=== PATIENT | male | born 1950 | race Caucasian/White ===

== ENCOUNTER 2023-08-09 01:57 | Emergency (ER) | payer MEDICARE ==
[~2023-08-09] VITALS: Ht 177 cm; Wt 97.5 kg
[2023-08-09] MEDS ORDERED: NITROGLYCERIN 0.4 MG SL TABLETS BTL 25'S SL PRN (02:15)
[2023-08-09] MEDS ORDERED: PROMETHAZINE INJ 25 MG/ML VIAL IVP STA (02:17)
--- NOTE | 2023-08-09 02:17 | ED General ---
General Source of Information: Patient, EMS, Spouse History of Present Illness Date Seen by Provider: Aug 09, 2023 Time Seen by Provider: 01:57 Initial Comments 72-year-old male presenting by EMS with complaints of waking up feeling nauseated and like his arms were heavy. He felt more short of breath than usual. He has a history of coronary artery disease and has had bypass in the past. He is visiting for a that is scheduled for Sunday. He felt like he had his defibrillator fire on him earlier today while he was traveling here. He woke up and felt like he had to go to the bathroom but ended up not going. He was feeling nauseated and felt like he was clammy and sweaty. He felt more short of breath and like his arms were heavy. He states that he has previously had a heart attack in his arms that felt heavy at that time as well. EMS gave him aspirin 324 mg and Zofran 4 mg IV. On arrival to the ED he states that his heaviness in his arms was feeling better but he feels like if he were to sit up or stand up that the heaviness will get a lot worse. Timing/Duration: 1 Hour Severity: Moderate Modifying Factors: worse with Movement Associated Systoms: No Cough; Diaphoresis; No Fever/Chills, No Headaches; Malaise, Nausea/Vomiting; No Rash, No Seizure; Shortness of Air; No Syncope; Weakness Allergies and Home Medications Allergies Coded Allergies: No Known Drug Allergies (Unverified , 08/09/23) Patient Home Medication List Home Medication List Reviewed: Yes Review of Systems Review of Systems Constitutional: No chills, No fever; malaise EENTM: no symptoms reported Respiratory: see HPI Cardiovascular: see HPI Gastrointestinal: see HPI Genitourinary: no symptoms reported Musculoskeletal: no symptoms reported Skin: see HPI Psychiatric/Neurological: Weakness Past Ibdrlfz-Mcerrd-Vuwwox Hx Past Medical History Surgery/Hospitalization HX: CAD, CABG, Hypertension, Pacemaker/Defibrillator Surgeries: Yes Cardiac, CABG Physical Exam Vital Signs Vital Signs - First Documented 08/09/23 08/09/23 02:04 02:26 Temp 37.0 Pulse 72 Resp 20 B/P (MAP) 152/72 (98) Pulse Ox 93 O2 Delivery Room Air O2 Flow Rate 2.00 Capillary Refill : Height, Weight, BMI Height: '" Weight: lbs. oz. kg; BMI Method: General Appearance: WD/WN, Chronically ill HEENT: PERRL/EOMI Neck: Full Range of Motion, Supple Respiratory: Chest Non Tender, Lungs Clear, Normal Breath Sounds, No Accessory Muscle Use, No Respiratory Distress Cardiovascular: Regular Rate, Rhythm, No Murmur, Normal Peripheral Pulses Gastrointestinal: Normal Bowel Sounds, No Pulsatile Mass, Non Tender, Soft Rectal: Deferred Extremity: Normal Capillary Refill, Normal Inspection, No Pedal Edema Neurologic/Psychiatric: Alert, Oriented x3, sheather II-XII Norm as Tested Skin: Normal Color, Warm/Dry Progress/Results/Core Measures Suspected Sepsis SIRS Temperature: Pulse: Respiratory Rate: Laboratory Tests 08/09/23 02:15: White Blood Count 13.2H Blood Pressure / Mean: Laboratory Tests 08/09/23 02:15: Creatinine 1.28, INR Comment 0.9, Platelet Count 246, Total Bilirubin 1.4H Results/Orders Lab Results Laboratory Tests Test 08/09/23 02:15 08/09/23 04:04 Range/Units White Blood Count 13.2 H 4.3-11.0 10^3/uL Red Blood Count 4.63 4.30-5.52 10^6/uL Hemoglobin 14.4 13.3-17.7 g/dL Hematocrit 44 40-54 % Mean Corpuscular Volume 94 80-99 fL Mean Corpuscular Hemoglobin 31 25-34 pg Mean Corpuscular Hemoglobin Concent 33 32-36 g/dL Red Cell Distribution Width 12.8 10.0-14.5 % Platelet Count 246 130-400 10^3/uL Mean Platelet Volume 10.0 9.0-12.2 fL Immature Granulocyte % (Auto) 0 % Neutrophils (%) (Auto) 51 42-75 % Lymphocytes (%) (Auto) 37 12-44 % Monocytes (%) (Auto) 10 0-12 % Eosinophils (%) (Auto) 2 0-10 % Basophils (%) (Auto) 1 0-10 % Neutrophils # (Auto) 6.7 1.8-7.8 10^3/uL Lymphocytes # (Auto) 4.9 H 1.0-4.0 10^3/uL Monocytes # (Auto) 1.3 H 0.0-1.0 10^3/uL Eosinophils # (Auto) 0.2 0.0-0.3 10^3/uL Basophils # (Auto) 0.1 0.0-0.1 10^3/uL Immature Granulocyte # (Auto) 0.1 0.0-0.1 10^3/uL Prothrombin Time 12.7 12.2-14.7 SEC INR Comment 0.9 0.8-1.4 Activated Partial Thromboplast Time 24 24-35 SEC Sodium Level 142 135-145 MMOL/L Potassium Level 3.9 3.6-5.0 MMOL/L Chloride Level 107 98-107 MMOL/L Carbon Dioxide Level 23 21-32 MMOL/L Anion Gap 12 5-14 MMOL/L Blood Urea Nitrogen 15 7-18 MG/DL Creatinine 1.28 0.60-1.30 MG/DL Estimat Glomerular Filtration Rate 60 BUN/Creatinine Ratio 12 Glucose Level 73 70-105 MG/DL Calcium Level 9.6 8.5-10.1 MG/DL Corrected Calcium 9.3 8.5-10.1 MG/DL Magnesium Level 2.0 1.6-2.4 MG/DL Total Bilirubin 1.4 H 0.1-1.0 MG/DL Aspartate Amino Transf (AST/SGOT) 16 5-34 U/L Alanine Aminotransferase (ALT/SGPT) 16 0-55 U/L Alkaline Phosphatase 105 40-136 U/L Troponin I < 0.30 < 0.30 <0.30 NG/ML Pro-B-Type Natriuretic Peptide 367.0 H <125.0 PG/ML Total Protein 7.3 6.4-8.2 GM/DL Albumin 4.4 3.2-4.5 GM/DL Lipase 36 8-78 U/L SARS-CoV-2 RNA (RT-PCR) Not Detected Not Detecte My Orders Orders - NYASIA MIRANDA MD Cbc With Automated Diff (08/09/23 02:11) Magnesium (08/09/23 02:11) Chest 1 View Ap/Pa Only (08/09/23 02:11) Ekg Tracing (08/09/23 02:11) Comprehensive Metabolic Panel (08/09/23 02:11) Protime With Inr (08/09/23 02:11) Partial Thromboplastin Time (08/09/23 02:11) O2 (08/09/23 02:11) Monitor-Rhythm Ecg Trace Only (08/09/23 02:11) Nitroglycerin 0.4 Mg Btl 25's (Nitroglyc (08/09/23 02:15) Ed Iv/Invasive Line Start (08/09/23 02:11) Lipase (08/09/23 02:11) Troponin I Fs (08/09/23 02:11) Probnp Fs (08/09/23 02:11) Covid 19 Inhouse Test (08/09/23 02:11) Promethazine Injection (Promethazine I (08/09/23 02:17) Pantoprazole Injection (Pantoprazole Inj (08/09/23 03:32) Troponin I Fs (08/09/23 04:00) Medications Given in ED Current Medications Medications Dose Ordered Sig/Nanda Route Start Time Stop Time Status Last Admin Dose Admin Nitroglycerin 0.4 mg UD PRN SL 08/09/23 02:15 08/09/23 02:22 0.4 MG Vital Signs/I&O 08/09/23 08/09/23 02:04 02:26 Temp 37.0 Pulse 72 Resp 20 B/P (MAP) 152/72 (98) Pulse Ox 93 93 O2 Delivery Room Air Nasal Cannula O2 Flow Rate 2.00 Capillary Refill : Progress Note #1: Progress Note Differential diagnosis includes myocardial infarction, STEMI, non-STEMI, electrolyte imbalance, arrhythmia, COVID, pneumonia, pancreatitis. Peripheral IV was established by EMS. Send labs for complete blood count, comprehensive metabolic profile, magnesium, troponin, proBNP, coagulation factors, lipase. COVID swab. 1 view chest x-ray to look for acute abnormality in the chest. Administer promethazine 25 mg IV for nausea since he still felt nauseated after the Zofran by EMS. Ordered sublingual nitroglycerin 0.4 mg every 5 minutes. Chest pain and arm heaviness. 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 He does have occasional PVCs. Obtain electrocardiogram Progress Note #2: Time: 03:04 Progress Note On my personal review and interpretation of the 1 view chest x-ray I did not appreciate any acute infiltrate. His electrocardiogram did not show acute ST elevation. His complete blood count had white blood cells at upper limit of normal at 13.2. He was not anemic with a hemoglobin of 14.4. His comprehensive metabolic profile did not show any acute electrolyte abnormalities. His magnesium was normal at 2. His troponin was negative at less than 0.3. proBNP was 367 which when age adjusted is not elevated. Covid was not detected on the swab. His blood pressure did come down with nitroglycerin to 110/57. Can repeat cardiac enzymes to see if he has any changes. 0335 When reviewing results and tests with patient and spouse he was reassured that initial tests were negative for heart attack and Covid was negative. He was feeling better but still not completely normal. He and his asked if it could have been triggered by eating greasy and fatty foods. He was not following a healthy diet on trip here and while in [place]. Advised that this could have been a cause for his symptoms as GI issues can mimic cardiac issues. Will try a dose of protonix 40 mg IV in case some of this is GERD. Repeat troponin around 4 am for a 2 hour serial enzyme check. If he continues to feel improved and has no further change in his troponin then will feel comfortable enough to allow him to go back to his hotel room and encourage him to avoid greasy and fatty foods. Progress Note #3: Progress Note 0430 repeat troponin is still less than 0.3. Patient feeling better will disc harge home and encouraged him to follow a heart healthy diet. Try taking an acid product marketing consultant in case any of this is acid indigestion. Counseled on follow-up and return precautions. If having worsening symptoms or more problems he should be reevaluated. Otherwise follow-up with his regular cardiology and primary care when he gets back home. ECG Initial ECG Impression Date: Aug 09, 2023 Initial ECG Impression Time: 02:08 Initial ECG Rate: 71 Initial ECG Rhythm: Normal Sinus Initial ECG Comparisson: No Previous ECG Available Comment Electrocardiogram shows sinus rhythm with Q waves in the inferior and lateral leads. Heart rate of 71 bpm. IN interval 160 ms. QT interval 396 ms with a QTc interval 419 ms. He has no acute ST elevation. There is some artifact and wander on the tracing. There is no prior tracing available for comparison. Diagnostic Imaging Diagonstic Imaging: Xray Plain Films/CT/US/NM/MRI: chest Reviewed: Reviewed by Me Departure Impression Primary Impression: Arm heaviness Additional Impression: Nausea Disposition: 01 HOME, SELF-CARE Condition: Stable Departure-Patient Inst. Decision time for Depature: 04:33 Referrals: SPEAKERWILLIE MD (PCP/Family) Primary Care Physician Patient Instructions: Chest Pain, Adult ED, Nausea and Vomiting, Adult ED, Heart Healthy Diet Add. Discharge Instructions: Try to avoid fatty greasy foods. Try to follow a more heart healthy diet. Consider taking Famotidine (Pepcid) or Prilosec (Omeprazole) over the counter to help with possible acid indigestion. If your symptoms return or worsen you should be reevaluated. 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 NYASIA MIRANDA MD Aug 09, 2023 02:17
[2023-08-09 02:22] LABS: BASOPHILS # (AUTO) 0.1 10^3/uL (0.0-0.1); BASOPHILS % (AUTO) 1 % (0-10); EOSINOPHILS # (AUTO) 0.2 10^3/uL (0.0-0.3); EOSINOPHILS % (AUTO) 2 % (0-10); HEMATOCRIT 44 % (40-54); HEMOGLOBIN 14.4 g/dL (13.3-17.7); LYMPHOCYTES # (AUTO) 4.9 10^3/uL (1.0-4.0); LYMPHOCYTES % (AUTO) 37 % (12-44); MEAN CORPUSCULAR HEMOGLOBIN 31 pg (25-34); MEAN CORPUSCULAR HGB CONC 33 g/dL (32-36); MEAN CORPUSCULAR VOLUME 94 fL (80-99); MONOCYTES # (AUTO) 1.3 10^3/uL (0.0-1.0); MONOCYTES % (AUTO) 10 % (0-12); NEUTROPHILS # (AUTO) 6.7 10^3/uL (1.8-7.8); NEUTROPHILS % (AUTO) 51 % (42-75); PLATELET COUNT 246 10^3/uL (130-400); WHITE BLOOD COUNT 13.2 10^3/uL (4.3-11.0)
[2023-08-09 02:41] LABS: INR 0.9 (0.8-1.4); PROTHROMBIN TIME PATIENT 12.7 SEC (12.2-14.7)
[2023-08-09 02:56] LABS: ALKALINE PHOSPHATASE 105 U/L (40-136); BILIRUBIN,TOTAL 1.4 MG/DL (0.1-1.0); BUN/CREATININE RATIO 12; CALCIUM 9.6 MG/DL (8.5-10.1); CARBON DIOXIDE 23 MMOL/L (21-32); CHLORIDE 107 MMOL/L (98-107); CREATININE SERUM 1.28 MG/DL (0.60-1.30); GFR ESTIMATED 60; GLUCOSE 73 MG/DL (70-105); POTASSIUM 3.9 MMOL/L (3.6-5.0); SODIUM 142 MMOL/L (135-145)
[2023-08-09 02:57] LABS: ALANINE AMINOTRANSFERASE 16 U/L (0-55); ALBUMIN 4.4 GM/DL (3.2-4.5); LIPASE 36 U/L (8-78); TOTAL PROTEIN 7.3 GM/DL (6.4-8.2)
[2023-08-09] MEDS ORDERED: PANTOPRAZOLE INJECTION 40 MG VIAL IV STA (03:32)
[2023-08-09 04:50] VITALS: BP 119/64
--- NOTE | 2023-08-09 07:40 | Diagnostic Imaging Report ---
INDICATION: Dyspnea Portable AP view of the chest is obtained. There is no previous study for comparison. Heart size and pulmonary vascularity are within normal limits. There is no pneumothorax or consolidation. Surgical findings are noted in the mediastinum. IMPRESSION: No acute abnormality. Dictated by: Dictated on workstation # [id number]
== END 2023-08-09 04:52 | disposition home or self-care (01) ==
LOC: EDUNIT# 01:57 → ER FS 01:59
DX: R29.898 Other symptoms and signs involving the musculoskeletal system (principal); R11.2 Nausea with vomiting, unspecified; Z86.74 Personal history of sudden cardiac arrest; Z20.822 Contact with and (suspected) exposure to COVID-19
CPT/HCPCS: 36415; 71045; 80053; 83690; 83735; 83880; 84484; 85025; 85610; 85730; 87636; 93005; 93041